=== PATIENT | male | born 1980 | race Caucasian/White ===

== ENCOUNTER 2019-06-28 22:31 | Inpatient (IN) | payer OTHER, MEDICAID ==
[~2019-06-28] VITALS: Ht 170.2 cm; Wt 113.4 kg
[2019-06-29] VITALS: BP 125/74
--- NOTE | 2019-06-29 00:13 | NUR ---
MS RN ADMITTING NOTES PATIENT ARRIVED ON UNIT 0000 VIA GURNEY AND ACCOMPANIED BY EMT; PATIENT IS AWAKE, A/O X4; PATIENT IS AMBULATORY AND VERBALIZES PAIN IS TOLERABLE; 3/10 OF NOW; PATIENT SKIN INTACT; BREATHING EVEN AND UNLABORED; NO SOB NOTED; NO SIGNS OF DISTRESS AT THIS TIME; R HAND # 20 INTACT AND PATENT; FLUSHING WELL, NO S/S OF REDNESS OR INFILTRATION; WILL CONTINUE TO MONITOR; PATIENT FAMILY AT BEDSIDE NOW; SAFETY PRECAUTIONS IMPLEMENTED; BED LOCKED IN LOW POSITION; BILATERAL UPPER SIDE RAILS X2; CALL LIGHT WITHIN REACH; WILL CONTINUE TO MONITOR
[2019-06-29] MEDS ORDERED: MAG HYDROX/AL HYDROX/SIMETH 30 ML UDC PO PRN (01:00)
[2019-06-29] MEDS ORDERED: Z GUARD REMEDY 2 OZ OINT TP PRN (01:00)
[2019-06-29] MEDS ORDERED: ONDANSETRON HCL/PF 4 MG/2 ML VIAL IVP PRN (01:00)
[2019-06-29] MEDS ORDERED: MAGNESIUM HYDROXIDE 30 ML UDC PO PRN (01:00)
--- NOTE | 2019-06-29 01:00 | NUR ---
MS RN NOTES MRSA SWAB COLLECTED R NARES; AWAITING RESULTS
[2019-06-29] MEDS ORDERED: METRONIDAZOLE 500MG/ NS 100ML 100 ML IV ONE (01:16)
--- NOTE | 2019-06-29 01:21 | NUR ---
MS RN NOTES STUFFED CASING TIER AT BEDSIDE; FAMILY PRESENT AT BEDSIDE
[2019-06-29] MEDS: IV NS 0.9% 1,000 ML IV PRN ×2 (02:21→20:28)
[2019-06-29] MEDS: ACETAMINOPHEN 325 MG TABLET PO PRN ×3 (03:36→20:18)
--- NOTE | 2019-06-29 03:40 | NUR ---
MS RN NOTES PATIENT REQUESTING PAIN MEDICATION; PATIENT NPO; OFFERED PATIENT MORPHINE IV, PATIENT REFUSED AND REQUESTED ONLY TYLENOL PO. MD MADE AWARE, DIET STATUS CHANGED TO NPO EXCEPT MEDS; MD ALSO ORDERED 1000 MG TYLENOL PO Q8HR PRN FOR SEVERE PAIN; PATIENT RATED PAIN 3/10, TYLENOL 650MG PO ADMINISTERED PER ORDER; WILL CONTINUE TO MONITOR
[2019-06-29] MEDS ORDERED: ACETAMINOPHEN ES 500 MG TABLET PO PRN (04:00)
[2019-06-29] MEDS ORDERED: METRONIDAZOLE 500MG/ NS 100ML 500 MG in PREMIX 1 EA IV SCH (04:00)
--- NOTE | 2019-06-29 06:21 | NUR ---
MS RN CLOSING NOTES PATIENT RESTING IN BED COMFORTABLY; A/OX4; NO SOB OR DISTRESS NOTED; PATIENT VERBALIZED PAIN IS TOLERABLE/MANAGEABLE; R HAND # 20 INTACT AND PATENT, RUNNING NS @ 75ML/HR; PATIENT TOLERATING IVF WELL; NPO EXCEPT MEDS STATUS MAINTAINED; ALL NEEDS RENDERED; SAFETY PRECAUTIONS IMPLEMENTED; BED LOCKED IN LOW POSITION; BILATERAL SIDE RAILS X2; CALL LIGHT WITHIN EASY REACH; WILL ENDORSE BOGDAN TO ONCOMING SHIFT
[2019-06-29 06:33] LABS: BASOPHILS % (AUTO) 0.2 % (0.0-2.0); EOSINOPHILS % (AUTO) 1.1 % (0.0-6.0); HEMATOCRIT 37 % (39-51); HEMOGLOBIN 12.6 g/dL (13.5-17.5); LYMPHOCYTES # (AUTO) 1.9 /CMM (0.8-4.8); LYMPHOCYTES % (AUTO) 18.2 % (20.0-44.0); MEAN CORPUSCULAR HGB CONC 34 g/dl (31.0-36.0); MEAN CORPUSCULAR VOLUME 87 fL (80-96); MONOCYTES # (AUTO) 0.9 /CMM (0.1-1.30); MONOCYTES % (AUTO) 8.9 % (2.0-12.0); NEUTROPHILS # (AUTO) 7.3 /CMM (1.8-8.9); NEUTROPHILS % (AUTO) 71.6 % (43.0-81.0); PLATELET COUNT (AUTO) 232 /CMM (150-450); WHITE BLOOD COUNT (AUTO) 10.2 K/uL (4.3-11.0)
[2019-06-29 06:39] LABS: ALBUMIN 2.8 g/dL (3.4-5.0); BILIRUBIN,TOTAL 0.3 mg/dL (0.2-1.0); MAGNESIUM 1.9 mg/dL (1.8-2.4); PHOSPHORUS 3.8 mg/dL (2.5-4.9); TOTAL PROTEIN, SERUM 6.2 g/dL (6.4-8.2)
--- NOTE | 2019-06-29 07:30 | NUR ---
m/s unix system administrator: initial assessment received pt in bed awake, a/ox4. remains npo. for possible surgery, awaiting for surgeon to see pt. instructed to call for assistance. will continue to monitor.
[2019-06-29 08:00] VITALS: BP 105/60
--- NOTE | 2019-06-29 08:35 | NUR ---
m/s batt machine operator: notes report given to denny (rn) for continuity of care.
--- NOTE | 2019-06-29 08:36 | NUR ---
RN NOTES RECEIVED PATIENT IN BED RESTING . A/OX4, ABLE TO MAKE NEEDS KNOWN. NOT IN ANY FORM OF DISTRESS, NO SOB. DENIED PAIN OR DISCOMFORT AT THIS TIME. IV ACCESS INTACT AND PATENT. KEPT PATIENT AND COMFORTABLE. BED IN LOW/LOCKED POSITION, SIDERAILS UPX2, CALL LIGHT IN REACH. WILL CONTINUE TO MONITOR ACCORDINGLY
[2019-06-29] MEDS: PANTOPRAZOLE 40 MG VIAL IV SCH (10:06)
[2019-06-29] MEDS: METRONIDAZOLE 500MG/ NS 100ML 500 MG in PREMIX 1 EA IV SCH ×2 (13:18→20:30)
--- NOTE | 2019-06-29 13:50 | NUR ---
RN NOTES RECEIVED A CALL FROM SURGERY THAT PATIENT IS SCHEDULEDFOR LAP APPENDECTOMY THIS 1800 THIS AFTERNOON. INFORMED PATIENT AND REMINDED THAT HE NEEDS TO BE KEPT NPO. PATIENT REPORTED THAT HE ATE A PIECE OF CECILY COOKIE AT 1130 BEFORE THE SURGEON CAME. CALLED OPERATING ROOM AND TALKED TO KATHY, INFORMED KATHY AND TOLD HIM TO INFORM THE SURGICAL TEAM ABOUT PATIENT EATING A COOKIE.
[2019-06-29 16:00] VITALS: BP 100/62
--- NOTE | 2019-06-29 16:00 | NUR ---
Surgery moved tomorrow noon per DR Hartmann.
--- NOTE | 2019-06-29 16:01 | NUR ---
RN NOTES Per Dr Hartmann, OK to have clear liquid diet now. NPO post midnight
[2019-06-29] MEDS: CEFTRIAXONE 2 G in IV D5W 100 ML IV SCH (17:39)
--- NOTE | 2019-06-29 19:20 | NUR ---
RN PM NOTE. RECIEVED BEDSIDE REPORT FROM CHERELLE MONTGOMERY. PATIENT IS AWAKE ORIENTED X4. REVIEWED POC QUESTIONS CONCERNS ADDRESSED. VERBALIZED UNDERSTANDING THAT HE WILL BE NPO AFTER MIDNIGHT. STATES, "I WONT EAT OR DRINK ANYTHING AFTER MIDNIGHT." SURGERY SCHUEDLED TOMORROW LAP APPY WITH DR. RUCKER SCHEDULED FOR 1PM PER REPORT. RIGHT HAND #20 PATENT WITH NNO S/S OF INFILTRATION. WITH NS AT 75ML/HR. BED DOWN LOCKED. SR X2 VERBALIZED UNDERSTANDING TO CALL FOR ASSISTANCE NEEDED. WILL CONT TO MONITOR.
--- NOTE | 2019-06-29 19:55 | NUR ---
RN CLOSING NOTES PATIENT IN STABLE CONDITION. ALL NEEDS ATTENDED AND PROVIDED. ALL DUE MEDICATIONS GIVEN ORDERED. KEPT PATIENT SAFE AND COMFORTABLE. PATIENT IS AWARE THAT HE IS NPO AFTER MIDNIGHT. BED IN LOW/LOCKED POSITION, SIDERAILS UPX 2 CALL LIGHT IN REACH. ENDORSED ACCORDINGLY.
[2019-06-29 20:00] VITALS: BP 114/52
[2019-06-30] VITALS (8 sets, daily range): BP systolic 102–136; BP diastolic 56–75
--- NOTE | 2019-06-30 00:30 | NUR ---
PATIENT MADE NPO FOR PLANNED SURGERY. ALL DRINK AND FOOD ITEMS REMOVED FROM PATIENTS BEDSIDE TABLE. DISCUSSED WITH PATIENT. PATIENTS STATE, "I WON'T DRINK OR EAT ANYTHING." SURGERY SCHEDULED FOR TOMORROW AT 12 NOON PER CALDERON CHARGE NURSE.
[2019-06-30] MEDS: MORPHINE SULFATE INJ 2 MG/ML DISP.SYRIN IV PRN ×7 (03:25→23:55)
[2019-06-30] MEDS: METRONIDAZOLE 500MG/ NS 100ML 500 MG in PREMIX 1 EA IV SCH ×3 (04:40→20:56)
[2019-06-30 06:26] LABS: BASOPHILS % (AUTO) 0.4 % (0.0-2.0); EOSINOPHILS % (AUTO) 0.8 % (0.0-6.0); HEMATOCRIT 38 % (39-51); HEMOGLOBIN 12.7 g/dL (13.5-17.5); LYMPHOCYTES # (AUTO) 1.6 /CMM (0.8-4.8); MEAN CORPUSCULAR HGB CONC 33 g/dl (31.0-36.0); MEAN CORPUSCULAR VOLUME 87 fL (80-96); MONOCYTES # (AUTO) 0.8 /CMM (0.1-1.30); MONOCYTES % (AUTO) 7.9 % (2.0-12.0); NEUTROPHILS # (AUTO) 7.1 /CMM (1.8-8.9); NEUTROPHILS % (AUTO) 73.9 % (43.0-81.0); PLATELET COUNT (AUTO) 228 /CMM (150-450); RED BLOOD CELL COUNT(AUTO) 4.39 MIL/uL (4.5-6.0); WHITE BLOOD COUNT (AUTO) 9.7 K/uL (4.3-11.0)
--- NOTE | 2019-06-30 06:52 | NUR ---
RN CLOSING PM NOTES PATIENT IN STABLE CONDITION. PATIENT TEMP CHECKED AND IS 9DEGREES. PATIENT HAS BEEN NPO SINCE MIDNIGHT LAST NIGHT. DENIES EATING OR DRINKING TODAY. BED IN LOW/LOCKED POSITION, SIDERAILS UPX 2 CALL LIGHT IN REACH. VERBALIZED UDNERSTANDING TO CALL FOR ASSISNTANCE IF NEEDED. SURGERY SCHEDULED FOR TODAY AT 1200 NOON.
[2019-06-30 07:14] LABS: CREATININE 0.9 mg/dL (0.6-1.3); MAGNESIUM 1.8 mg/dL (1.8-2.4); PHOSPHORUS 3.5 mg/dL (2.5-4.9); POTASSIUM 3.7 mmol/L (3.5-5.1)
--- NOTE | 2019-06-30 07:25 | NUR ---
MS RN OPENING NOTES RECEIVED PT IN BED, AWAKE, A/O X4/ PT PREFERS TO BE CALLED "IAN". PT TOLERATING RA, WITH NO ACUTE RESPIRATORY DISTRESS NOTED. PT STATED PAIN OF4-5/10, DURING ROUNDS RN/JARRED GIVING PT MORPHINE FOR PAIN. PER PT MORPHINE IS VERY EFFECTIVE FOR HIS PAIN. PT ALSO AWARE OF THE PLAN APPENDECTOY SURGERY TODAY AND MET DR. RUCKER/SURGEON. PIVTO R HAND G20, FLUSHED WITH NS, INTACT AND OPERATIONAL. PT KEPT COMFORTABLE. PT'S BED IN LOWEST, LOCKED POSITION WITH SR X3. WILL CONTINUE PLAN OF CARE.
[2019-06-30] MEDS: PANTOPRAZOLE 40 MG VIAL IV SCH (08:25)
--- NOTE | 2019-06-30 12:42 | NUR ---
MS RN NOTES CALLED SURGERY REGARDING SURGERY SCHEDULED AT 12PM. PER RN/PANCHITO SURGERY MOVED TO [address] RUCKER. PT MADE AWARE AND FAMILY AT BEDSIDE.
[2019-06-30] MEDS ORDERED: LIDOCAINE 100MG/5ML DISP SYR ONE (14:06)
[2019-06-30] MEDS ORDERED: HYDROMORPHONE INJ 2 MG/ML DISP.SYRIN ONE (14:07)
[2019-06-30] MEDS ORDERED: FENTANYL PF 100MCG/2ML AMPUL ONE (14:13)
--- NOTE | 2019-06-30 14:15 | NUR ---
MS RN NOTES PT LEFT THE UNIT FOR SURGERY WITH DR. RUCKER AT 1410.
[2019-06-30] MEDS ORDERED: BUPIVACAINE MPF 0.5% W/EPI INJ 30 ML VIAL ONE (14:18)
[2019-06-30] MEDS ORDERED: ZOLPIDEM TARTRATE 5 MG TABLET PO PRN (16:30)
[2019-06-30] MEDS ORDERED: METOCLOPRAMIDE HCL 10 MG/2 ML VIAL IV PRN (16:30)
--- NOTE | 2019-06-30 16:39 | NUR ---
MS RN NOTES PT JUST CAME BACK FROM OR, ARRIVED VIA BED 1635. PT ON SYPPLEMENTARY OXYGEN AT 2LPM VIA NC, SATURATING AT 97%. PT STILL A LITTLE GROGGY, EASILY AROUSED. FAMILY PRESENT AT BEDSIDE. VITALS TAKEN AND RECORDED.
--- NOTE | 2019-06-30 16:40 | NUR ---
MS RN NOTES PER TEACHER ADULT EDUCATION. PT STARTED WITH LAPAROSCOPIC APPENDECTOMY THAT LEAD TO OPEN DUE TO RURTURED APPENDICITIS AND WITH ABSCESS. RIGHT LOWER HORIZONTAL INCISION, UMBILICAL LAPAROSCOPIC INCISION AND NED AT MID LOWER ABDOMINAL AREA NOTED WITH BRIGHT RED OUTPUT. WILL CONTINUE TO MONITOR.
[2019-06-30] MEDS: IV NS 0.9% 1,000 ML IV PRN (16:45)
[2019-06-30] MEDS: CEFTRIAXONE 2 G in IV D5W 100 ML IV SCH (18:01)
--- NOTE | 2019-06-30 18:59 | NUR ---
MS RN NOTES PT REQUESTED FOR PAIN MEDICINE MORPHINE 2MG PRN FOR 8/10 PAIN SCALE. GIVEN ORDERED. WILL CONTINUE TO MONITOR.
--- NOTE | 2019-06-30 19:09 | NUR ---
MS RN CLOSING NOTES PT REMAINS IN BED, INTERMITTENTLY DOZING OFF, EASILY AROUSED, A/O X4. PT TOLERATING RA, WITH NO ACUTE RESPIRATORY DISTRESS NOTED. PT JUST HAD PAIN MEDICINE PRN ORDERED. IVF NS AT 75ML/HR TO R HAND G20, INTACT AND FLUID INFUSING WELL. NED OROSCO WITH BRIGHT RED DRAINAGE, 15ML OUTPUT. PT KEPT COMFORTABLE. ALL NEEDS AND CARE ATTENDED. PT'S BED IN LOWEST, LOCKED POSITION WITH SR X3. WILL ENDORSE TO INCOMING NIGHT NURSE FOR BOGDAN.
[2019-06-30] MEDS: HYDROCODONE/APAP 5/325MG 1 EACH TABLET PO PRN (21:29)
[2019-07-01] MEDS: HYDROCODONE/APAP 5/325MG 1 EACH TABLET PO PRN ×5 (01:08→20:10)
[2019-07-01] MEDS: METRONIDAZOLE 500MG/ NS 100ML 500 MG in PREMIX 1 EA IV SCH ×3 (04:46→20:52)
[2019-07-01] MEDS: MORPHINE SULFATE INJ 2 MG/ML DISP.SYRIN IV PRN (07:06)
--- NOTE | 2019-07-01 07:15 | NUR ---
MS ULISES NOTES PATIENT IN BED ALERT ORIENTED X3 .NO ACUTE DISTRESS NOTED, BREATHING UNLABORED. IV ACCESS PATENT AND INTACT, NO REDNESS OR SWELLING NOTED. SITTER A BED SIDE. SAFETY MEASURES IN PLACE. CALL LIGHT WITHIN REACH. WILL CONTINUE TO MONITOR ACCORDINGLY. Addendum: 07/01/19 at 0804 by ALLEN CHEN RN DISREGARD ABOVE NOTES, WRONG PATIENT
--- NOTE | 2019-07-01 07:15 | NUR ---
MS RN NOTES PATIENT IN BED ALERT ORIENTED X4 .NO ACUTE DISTRESS NOTED, BREATHING UNLABORED. IV ACCESS PATENT AND INTACT, NO REDNESS OR SWELLING NOTED. SAFETY MEASURES IN PLACE. CALL LIGHT WITHIN REACH. WILL CONTINUE TO MONITOR ACCORDINGLY.
[2019-07-01 07:52] VITALS: BP 124/65
[2019-07-01] MEDS: PANTOPRAZOLE 40 MG VIAL IV SCH (08:17)
--- NOTE | 2019-07-01 12:00 | NUR ---
MS RN NOTES PATIENT AMBULATES WITH PHYSICAL THERAPY, PATIENT TOLERATED WELL.
[2019-07-01] MEDS: ENOXAPARIN SODIUM 40 MG/0.4 ML DISP.SYRIN SQ SCH (12:29)
[2019-07-01 16:00] VITALS: BP 130/73
[2019-07-01] MEDS: CEFTRIAXONE 2 G in IV D5W 100 ML IV SCH (18:11)
--- NOTE | 2019-07-01 18:45 | NUR ---
MS RN NOTES PATIENT IN BED ALERT ORIENTED X 4 .NO ACUTE DISTRESS NOTED, BREATHING UNLABORED. IV ACCESS PATENT AND INTACT, NO REDNESS OR SWELLING NOTED. NED DRAIN INTACT WITH 10 ML SEROSANGUINEOUS OUTPUT . NEEDS ATTENDED AND ANTICIPATED. KEPT CLEAN DRY AND COMFORTABLE. SAFETY MEASURES IN PLACE. CALL LIGHT WITHIN REACH. WILL ENDORSE TO NIGHT NURSE FOR CONTINUITY OF CARE.
--- NOTE | 2019-07-01 20:10 | NUR ---
MS/RN PATIENT IS AWAKE, ALERT, ORIENTED, C/O ABDOMINAL PAIN 6/10, MEDICATED WITH NORCO 1 TAB PO ORDERED, NO DISTRESS NOTED, WILL MONITOR.
[2019-07-01 20:26] VITALS: BP 120/67
[2019-07-02] MEDS: HYDROCODONE/APAP 5/325MG 1 EACH TABLET PO PRN ×6 (03:55→23:10)
[2019-07-02] MEDS: IV NS 0.9% 1,000 ML IV PRN ×2 (04:38→23:43)
[2019-07-02] MEDS: METRONIDAZOLE 500MG/ NS 100ML 500 MG in PREMIX 1 EA IV SCH ×3 (05:07→20:17)
--- NOTE | 2019-07-02 06:08 | NUR ---
MS/RN PATIENT IS SLEEPING AT THIS TIME, APPEAR COMFORTABLE, NO SIGNS OF DISTRESS NOTED, CALL LIGHT IN REACH, IVF INFUSING, ALL NEEDS AT ATTENDED AT THIS TIME, WILL CONTINUE TO MONITOR.
--- NOTE | 2019-07-02 07:10 | NUR ---
MS RN NOTES PATIENT IN BED ALERT ORIENTED X 4 .NO ACUTE DISTRESS NOTED, BREATHING UNLABORED. IV ACCESS PATENT AND INTACT, NO REDNESS OR SWELLING NOTED. SAFETY MEASURES IN PLACE. CALL LIGHT WITHIN REACH. WILL CONTINUE TO MONITOR ACCORDINGLY.
[2019-07-02 07:58] VITALS: BP 124/72
[2019-07-02] MEDS: PANTOPRAZOLE 40 MG VIAL IV SCH (08:22)
--- NOTE | 2019-07-02 10:09 | NUR ---
MS RN NOTES NORCO GIVEN ORDERED, VITAL SIGNS STABLE.
[2019-07-02 11:48] LABS: BASOPHILS % (AUTO) 0.2 % (0.0-2.0); EOSINOPHILS % (AUTO) 0.7 % (0.0-6.0); HEMATOCRIT 37 % (39-51); HEMOGLOBIN 12.1 g/dL (13.5-17.5); LYMPHOCYTES # (AUTO) 1.2 /CMM (0.8-4.8); LYMPHOCYTES % (AUTO) 11.6 % (20.0-44.0); MEAN CORPUSCULAR HGB CONC 33 g/dl (31.0-36.0); MEAN CORPUSCULAR VOLUME 87 fL (80-96); MONOCYTES # (AUTO) 0.7 /CMM (0.1-1.30); MONOCYTES % (AUTO) 6.3 % (2.0-12.0); NEUTROPHILS # (AUTO) 8.5 /CMM (1.8-8.9); NEUTROPHILS % (AUTO) 81.2 % (43.0-81.0); PLATELET COUNT (AUTO) 253 /CMM (150-450); RED BLOOD CELL COUNT(AUTO) 4.22 MIL/uL (4.5-6.0); WHITE BLOOD COUNT (AUTO) 10.4 K/uL (4.3-11.0)
[2019-07-02] MEDS: ENOXAPARIN SODIUM 40 MG/0.4 ML DISP.SYRIN SQ SCH (12:10)
--- NOTE | 2019-07-02 14:46 | NUR ---
MS RN NOTES NORCO GIVEN ORDERED, VITAL SIGNS STABLE.
[2019-07-02 16:00] VITALS: BP 127/72
[2019-07-02] MEDS: CEFTRIAXONE 2 G in IV D5W 100 ML IV SCH (17:28)
--- NOTE | 2019-07-02 18:52 | NUR ---
MS RN NOTES PATIENT IN BED ALERT ORIENTED X 4 .NO ACUTE DISTRESS NOTED, BREATHING UNLABORED. IV ACCESS PATENT AND INTACT, NO REDNESS OR SWELLING NOTED. NED DRAIN INTACT WITH SEROUS 15 ML OUTPUT. NEEDS ATTENDED AND ANTICIPATED. KEPT CLEAN DRY AND COMFORTABLE. SAFETY MEASURES IN PLACE. CALL LIGHT WITHIN REACH. WILL ENDORSE TO NIGHT NURSE FOR CONTINUITY OF CARE .
--- NOTE | 2019-07-02 19:20 | NUR ---
MS RN OPENING NOTES PATIENT RECEIVED RESTING IN BED WITH FAMILY AT BEDSIDE, A/O X 4. STABLE ON RA BREATHING EVEN AND UNLABORED, NO SOB NOTED, NO SIGNS OF ACUTE DISTRESS. COMPLAINT OF PAIN AND DISCOMFORT IN ABDOMINAL AREA. IV LOCATED ON R HAND # 20 RUNNING NS @ 75 ML/ HR. SAFETY PRECAUTIONS IN PLACE WITH BED IN LOWEST POSITION, CALL LIGHT WITHIN REACH, SIDE RAILS UP, AND BREAKS ON. WILL CONTINUE TO MONITOR THROUGHOUT THE NIGHT.
[2019-07-02 20:00] VITALS: BP 121/73
[2019-07-02 20:12] VITALS: BP 121/73
[2019-07-03] MEDS: HYDROCODONE/APAP 5/325MG 1 EACH TABLET PO PRN ×4 (03:30→16:29)
[2019-07-03] MEDS: METRONIDAZOLE 500MG/ NS 100ML 500 MG in PREMIX 1 EA IV SCH (04:39)
--- NOTE | 2019-07-03 06:26 | NUR ---
MS RN CLOSING NOTES PATIENT RESTING IN BED, A/O X 4. STABLE ON RA BREATHING EVEN AND UNLABORED, NO SOB NOTED, NO SIGNS OF ACUTE DISTRESS. NO COMPLAINTS OF PAIN OR DISCOMFORT AT THE MOMENT. PRN PAIN MEDICATION GIVEN FOR NEEDED. IV LOCATED ON R HAND # 20 RUNNING NS @ 75 ML/ HR. SAFETY PRECAUTIONS IN PLACE WITH BED IN LOWEST POSITION, CALL LIGHT WITHIN REACH, SIDE RAILS UP, AND BREAKS ON. ALL NEEDS ATTENDED TO, PATIENT WAS KEPT CLEAN AND DRY THROUGHOUT THE NIGHT. WILL ENDORSE TO ON COMING SHIFT ABOUT BOGDAN.
[2019-07-03 06:55] LABS: BASOPHILS % (AUTO) 0.3 % (0.0-2.0); EOSINOPHILS % (AUTO) 1.6 % (0.0-6.0); HEMATOCRIT 35 % (39-51); HEMOGLOBIN 12.1 g/dL (13.5-17.5); LYMPHOCYTES # (AUTO) 1.3 /CMM (0.8-4.8); LYMPHOCYTES % (AUTO) 13.8 % (20.0-44.0); MEAN CORPUSCULAR HGB CONC 34 g/dl (31.0-36.0); MEAN CORPUSCULAR VOLUME 86 fL (80-96); MONOCYTES # (AUTO) 0.6 /CMM (0.1-1.30); MONOCYTES % (AUTO) 6.6 % (2.0-12.0); NEUTROPHILS # (AUTO) 7.4 /CMM (1.8-8.9); NEUTROPHILS % (AUTO) 77.7 % (43.0-81.0); PLATELET COUNT (AUTO) 257 /CMM (150-450); WHITE BLOOD COUNT (AUTO) 9.6 K/uL (4.3-11.0)
[2019-07-03 07:05] LABS: CALCIUM, SERUM 8.4 mg/dL (8.5-10.1); CREATININE 0.9 mg/dL (0.6-1.3); POTASSIUM 3.6 mmol/L (3.5-5.1)
--- NOTE | 2019-07-03 07:46 | NUR ---
MS RN OPENING NOTES RECEIVED PATIENT IN BED SLEEPING COMFORTABLY. PATIENT IN NO ACUTE DISTRESS. NO SOB NOTED. PATIENT BREATHING IS EVEN AND UNLABORED. PATIENT SAFETY PRECAUTIONS IN PLACE. NED DRAIN PATENT AND INTACT. PATIENT BED IS LOCKED AND IN LOWEST POSITION. CALL LIGHT WITHIN REACH. WILL CONTINUE TO MONITOR.
[2019-07-03 08:00] VITALS: BP 131/77
[2019-07-03] MEDS: PANTOPRAZOLE 40 MG VIAL IV SCH (08:03)
[2019-07-03] MEDS ORDERED: AMOX-430 PO ×2 (09:33→15:42)
[2019-07-03] MEDS ORDERED: ONDA4TAB5 PO ×2 (09:33→15:42)
[2019-07-03] MEDS ORDERED: HYDR-4354 PO ×2 (09:33→15:42)
[2019-07-03] MEDS: ENOXAPARIN SODIUM 40 MG/0.4 ML DISP.SYRIN SQ SCH (12:27)
[2019-07-03] MEDS ORDERED: METRONIDAZOLE 500 MG TABLET PO SCH (13:00)
[2019-07-03 16:00] VITALS: BP 119/70
[2019-07-03] MEDS: CEFTRIAXONE 2 G in IV D5W 100 ML IV SCH (17:27)
--- NOTE | 2019-07-03 18:45 | NUR ---
MS SPIRITUAL MINISTER NOTE PATIENT MEDICALLY STABLE FOR DISCHARGE. PATIENT IN NO ACUTE DISTRESS. NO SOB NOTED. PATIENT BREATHING IS EVEN AND UNLABORED. VITAL SIGNS WNL. DANYEL CLOTH BOLT BANDER CAME AND REMOVED NED DRAIN. PATIENT TOLERATED WELL. SURGICAL DRESSINGS DRY AND INTACT. PATIENT IN NO PAIN AT THIS TIME. PATIENT DC INSTRUCTIONS PROVIDED. INSTRUCTED TO OBTAIN PRESCRIPTIONS FROM PHARMACY AND CONFIRMED PREFERRED PHARMACY WITH PATIENT. PATIENT VERBALIZES UNDERSTANDING. PATIENT IV REMOVED. ID BAND REMOVED. PATIENT SKIN ASSESSED, NO NEW SKIN BREAKDOWN NOTED. PATIENT KEPT CLEAN AND DRY THROUGHOUT SHIFT. PATIENT VERBALIZES AND ACKNOWLEDGES THAT HE HAS BELONGINGS AND SIGNED BELONGINGS LIST. PATIENT AMBULATORY WITH ASSIST BACK TO CAR WITH FAMILY. MD AWARE OF DISCHARGE.
== END 2019-07-03 18:45 | disposition home or self-care (01) | DRG 340 ==
LOC: MED 23:46
PROVIDERS: ADMIT Internal Medicine; ATTEND Nurse Practitioner Acute Care
DX: K35.33 Acute appendicitis with perforation, localized peritonitis, and gangrene, with abscess (principal); E66.01 Morbid (severe) obesity due to excess calories; Z68.39 Body mass index [BMI] 39.0-39.9, adult; Z71.3 Dietary counseling and surveillance
CPT/HCPCS: 36415; 80048-TC; 80053-TC; 80061-TC; 83735-TC; 84100-TC; 85025-TC; 85610-TC; 85730-TC; 86850-TC; 87040-TC; 87070-TC; 87081-TC; 87186-TC; 88304-TC; 97116-TC; 97530-TC; A4216; C9113; G0378; J0696; J1170; J1650; J2001; J2270; J3010; J3490; J7030; J7060